=== PATIENT | female | born 1970 | race Two or more races ===

== ENCOUNTER 2024-07-30 05:55 | Emergency (ER) | payer MEDICAID, SELFPAY ==
[2024-07-30 05:57] VITALS: BP 177/79; PULSE 80; RESP 18; TEMP 37; O2SAT 97; BMI 28.5
--- NOTE | 2024-07-30 06:36 | XR_ITS ---
Examination: CT abdomen and pelvis without contrast. Coronal 3-D reconstructions. Sagittal 2-D reconstructions. Date and time of exam:August 09, 2024 0812 hrs. Indications: Mid abdominal pain beginning 5 days ago CTDI: vol (mGy): 12.8 DLP: (mGycm): 621 Technique: Axial images of the abdomen have been obtained, 3 mm slice thickness Intravenous contrast material has not been administered. Low dose protocols were performed. One or more of the following dose reduction techniques were used; automated exposure control, adjustment of the mA and/or KV according to patient size, use of iterative reconstruction technique. Findings: No focal liver or splenic lesions Absent gallbladder No extrahepatic biliary tract dilatation No pancreatic or adrenal mass No renal or ureteral calculi Minimal right hydronephrosis without ureteral calculi, consider urinary tract infection 13 mm fat-containing umbilical hernia Normal appendix No diverticulitis No bladder mass or bladder calculi Moderate osteopenia Impression: Minimal right hydronephrosis without renal or ureteral calculi, consider urinary tract infection Normal appendix 13 mm fat-containing umbilical hernia
--- NOTE | 2024-07-30 06:37 | PD.EDRME ---
Rapid Medical Screening Exam E Arrival date/time: 07/30/24 05:55 53-year-old female with medical history significant for pancreatitis and surgical history significant for hysterectomy and cholecystectomy presents to the emergency department today complaints of abdominal pain and bloating patient reports that her primary care doctor called her and let her know that her enzymes are elevated Chief Complaint: Abdominal Pain Vital signs: Vital Signs Temperature 98.6 F 07/30/24 05:57 Pulse Rate 80 07/30/24 05:57 Respiratory Rate 18 07/30/24 05:57 Blood Pressure 177/79 H 07/30/24 05:57 Pulse Oximetry (%) 97 07/30/24 05:57 Oxygen Delivery Method Room Air 07/30/24 05:57
[2024-07-30] MEDS: HYDROcodone/APAP 5/325 TABLET 1 TAB PO (06:41)
[2024-07-30 07:20] LABS: Collection Type, Urine Clean Catch
[2024-07-30 07:23] LABS: Basophils % (Auto) 0 % (0-2.5); Eosinophils # (Auto) 0.4 Thou/mm3 (0.0-0.5); Eosinophils % (Auto) 5 % (0-10); Hematocrit 42.4 % (36.0-46.0); Hemoglobin 14.3 g/dL (12.0-16.0); Immature Granulocytes % (Auto) 0 % (0-0); Immature Granulocytes Auto 0.03 Thou/mm3 (0.00-0.00); Lymphocytes # (Auto) 1.6 Thou/mm3 (1.0-4.8); Lymphocytes % (Auto) 21 % (10-50); Mean Corpuscular HGB Conc 33.7 g/dl (31.0-37.0); Mean Corpuscular Hemoglobin 29.5 pg (25.0-35.0); Mean Corpuscular Volume 88 fL (80-100); Monocytes # (Auto) 0.8 Thou/mm3 (0.0-0.8); Monocytes % (Auto) 11 % (0-12); Neutrophils # (Auto) 4.6 Thou/mm3 (1.8-7.7); Neutrophils % (Auto) 62 % (37-80); Nucleated Red Blood Cell % 0 /100 WBC (0); Platelet Count 320 Thou/mm3 (140-440); Red Blood Count 4.84 Miln/mm3 (4.00-5.20); White Blood Count 7.5 Thou/mm3 (3.6-11.0)
[2024-07-30 07:41] LABS: Alanine Aminotransferase 372 U/L (10-49); Albumin, Serum 4.6 gm/dL (3.5-5.0); Albumin/Globulin Ratio 1.4 (1.2-2.2); Alkaline Phosphatase 225 U/L (46-116); Anion Gap 6 (7-16); Aspartate Amino Transferase 255 U/L (0-34); BUN/Creatinine Ratio 7 Ratio (12-20); Blood Urea Nitrogen 7 mg/dL (9-23); Calcium 9.8 mg/dL (8.3-10.6); Calcium (Corrected) 9.8 mg/dL (8.5-10.1); Carbon Dioxide 28.6 mMol/L (20.0-31.0); Chloride 106 mMol/L (98-107); Estimated Creatinine Clearance 61.3 mL/min (>60); Globulin 3.2 gm/dL (2.3-3.5); Glucose 134 mg/dL (74-106); Lipase 80 U/L (12-53); Osmolality,Calculated 281 (275-295); Potassium 3.4 mMol/L (3.4-5.1); Sodium 141 mMol/L (136-145); Total Protein 7.8 gm/dL (5.7-8.2); eGFR > 60 See Note
--- NOTE | 2024-07-30 07:46 | XR_ITS ---
Examination: Abdomen sonogram, Limited Date and time of exam: August 09, 2024 0756 hrs. Indications: Nausea vomiting beginning 5 days ago Technique: Real-time peoples scale transabdominal sonographic images of the upper abdomen obtained. Findings: Absent gallbladder Common bile duct 0.9 cm no stones Pancreatic head 2.2 cm Liver 17.3 cm fatty infiltration Normal hepatopedal portal venous flow Patent IVC Impression: Common bile duct 0.9 cm, if biliary colic is a clinical consideration, suggest MRCP follow-up
[2024-07-30 07:52] LABS: Bilirubin,Urine Negative (Negative); Blood,Urine Negative (Negative); Clarity,Urine Clear (Clear/Hazy); Color,Urine Yellow (Lt Yel-Yel); Culture Indicated,Urine Not Indicated; Glucose, Urine Negative (Negative); Ketones,Urine Negative (Negative); Leukocyte Esterase,Urine Negative (Negative); Nitrite,Urine Negative (Negative); PH,Urine 7.5 (5.0-7.0); Protein,Urine Trace (Neg - Trace); RBC,Urine 2 /hpf (0-3); Specific Gravity,Urine 1.013 (1.001-1.035); Squamous Epithelial Cell,Urine 2 /hpf (0-5); WBC,Urine 1 /hpf (0-5)
[2024-07-30 10:10] LABS: Hepatitis A Antibody IgM Non Reactive (Non React); Hepatitis B Core Antibody IgM Non Reactive (Non React); Hepatitis B Surface Antigen Non Reactive (Non React); Hepatitis C Antibody Non Reactive (Non React)
[2024-07-30 11:12] VITALS: BP 168/98; PULSE 84; RESP 20; TEMP 37; O2SAT 99
--- NOTE | 2024-07-30 12:18 | PC.NURSE ---
PT CAME IN FOR EPIGASTRIC PAIN THAT RADIATES TO BACK SINCE 07/25/2024 PT WA NO LONGER TO TAKE PAIN. PT CT AND US REPORTS ARE BACK ALONG WITH LABS. PT IS AAOX4 COLLEEN TO ANSWER ALL QUESTIONS APPROPRATELY
[2024-07-30 12:20] VITALS: BP 143/93; PULSE 83; RESP 16; TEMP 37.2; O2SAT 97
--- NOTE | 2024-07-30 12:58 | EDNOTE_ITS ---
ED Abdominal Pain RME/HPI General Chief Complaint: Abdominal Pain Stated complaint: RIGHT UPPER BACK PAIN, RADIATING BACK, NAUSEA Arrival date/time: 07/30/24 05:55 RME / HPI RME / HPI narrative: 07/30/24 05:55 53-year-old female with medical history significant for pancreatitis and surgical history significant for hysterectomy and cholecystectomy presents to the emergency department today complaints of abdominal pain and bloating patient reports that her primary care doctor called her and let her know that her enzymes are elevated DR. NELSON MAIN ED EVALUATION: 53 year old female with past medical history significant for pancreatitis, hysterectomy, gallstones and a cholecystectomy presents to the Emergency Department with complaint of upper abdominal pain today. Pain is described as aching and rated 6/10. Associated symptoms include nausea but no vomiting. No other symptoms at this reported. Related Data Previous Rx's ?Medication ?Instructions ?Recorded albuterol sulfate 90 mcg/actuation 2 puff inhalation Q 6H #18 grams 08/11/17 aerosol inhaler albuterol sulfate 2.5 mg/3 mL 5 mg (6 mL) inhalation Q 20M PRN 03/29/18 (0.083 %) solution for nebulization shortness of breat h or wheezing #90 mL ibuprofen 800 mg tablet 800 mg PO TID PRN pain #30 t abs 12/10/18 docusate sodium 100 mg capsule 100 mg PO BID postop 30 days #60 05/14/21 (Colace) caps ibuprofen 600 mg tablet 600 mg PO Q6H PRN fever or p ain 30 05/14/21 days #60 tabs Allergies Allergy/AdvReac Type Severity Reaction Status Date / Time codeine Allergy Verified 07/30/24 12:14 sumatriptan (From Imitrex) Allergy Verified 07/30/24 12:14 Review of Systems Review of Systems Systems Reviewed: All systems reviewed, normal except as documented Narrative Review of Systems: GEN: No fever, no chills, no weight loss EYES: No discharge, no visual changes, no pain HEENT: No ear pain, no congestion, no sore throat PULM: No shortness of breath, no cough, no congestion CV: No chest pain, no dyspnea on exertion, no palpitations GI: + nausea, no vomiting, no diarrhea, + upper abdominal pain, no constipation : No frequency, no urgency and no dysuria MUSC/SKEL: No joint pain, no back pain SKIN: No rash PSYCH: No hallucinations, no depression HEME/LYMPH: No easy bleeding or bruising tendencies NEURO: No weakness, no headache Past Medical History Past Medical History NEUROLOGIC: Positive Migraine; Negative Neurological Disorders or Seizures CARDIAC: Positive Hypertension; Negative Cardiac Disorders or Congestive Heart Failure RESPIRATORY: Positive Asthma; Negative Chronic Obstructive Pulmonary Disease (COPD) GASTROINTESTINAL: Positive Gastrointestinal Disorders, Pancreatitis, Gall Bladder Disease (REMOVED 2002) and Gastroesophageal Reflux Disease GENITOURINARY: Negative Genitourinary Disorders or Renal Disease REPRODUCTIVE: Positive Previous Pregnancies (4) MUSCULOSKELETAL: Positive Musculoskeletal Disorders ENDOCRINE: Negative Endocrine Disorders, Diabetes Mellitus Type 1 or Diabetes Mellitus Type 2 HEMATOLOGIC: Negative Blood Disorders OTHER HISTORY: Positive Chicken Pox; Negative Falls, Blood Transfusions, Blood Transfusion Reaction or Anesthesia Reactions Surgical History SURGICAL: Positive Hysterectomy Social History SMOKING STATUS: Never smoker SUBSTANCE USE: does not use ALCOHOL: Never ED Exam Narrative Physical exam: GENERAL APPEARANCE: alert and oriented x 4, well-developed, well-nourished, no acute distress VITALS: All vitals were reviewed and the pulse ox is 98% on room air, which is normal according to my interpretation. HEENT: Normocephalic, atraumatic; pupils equal, round, reactive to light; EOMI; mucous membranes pink, moist; oropharynx clear NECK: Supple LUNGS: CTABL; no wheezes, no rales, no rhonchi HEART: Regular rate, regular rhythm; normal S1, S2; no murmurs ABDOMEN: epigastric and right upper quadrant tenderness; normal BS; no masses, no organomegaly, no hernia BACK: no CVA tenderness EXTREMITIES: atraumatic; no edema NEUROLOGIC: awake; alert and oriented x4; cranial nerves II-XII grossly intact; no focal sensory or motor deficits PSYCHIATRIC: appropriate mood and affect SKIN: warm, dry, normal color; no rashes Course Quality Measures none Orders Category Date Time Status CT abdomen pelvis wo con Stat Exams 07/30/24 06:36 Completed US gall bladder Stat Exams 07/30/24 07:46 Completed CBC Stat Lab 07/30/24 06:59 Completed Comprehensive Metabolic Panel Stat Lab 07/30/24 06:59 Completed Hepatitis Acute Panel Stat Lab 07/30/24 06:59 Completed Lipase Stat Lab 07/30/24 06:59 Completed UA, C/S IF [Urinalysis, C/S if Indicated] Stat Lab 07/30/24 06:55 Completed HYDROcodone*/APAP 5/325 [[place] 5/325] Med 07/30/24 06:36 Discontinued 1 tab PO X1 ONE Morphine Inj Med 07/30/24 13:01 Discontinued 5 mg IVP X1 ONE Ondansetron Inj [Zofran Inj] Med 07/30/24 13:01 Discontinued 4 mg IV X1 ONE Sodium Chloride 0.9% 1000 ml [Ns] 1,000 ml Med 07/30/24 13:01 Discontinued IV 999 mls/hr Vital Signs Vital signs: Vital Signs Temperature 98.6 F 07/30/24 05:57 Pulse Rate 80 07/30/24 05:57 Respiratory Rate 18 07/30/24 05:57 Blood Pressure 177/79 H 07/30/24 05:57 Pulse Oximetry (%) 97 07/30/24 05:57 Oxygen Delivery Method Room Air 07/30/24 05:57 Abdominal Pain MDM MDM Narrative MDM Narrative:: I, Rylee Montague am scribing for and in the presence of Dr. Nelson. Patient data External records reviewed:: [facility] previous records (Reviewed OB / SERVICES PROGRAM MANAGER note by Bijal Charlton dated 05/14/21) Clinical information provided by:: patient Social determinants that could affect healthcare access:: none Patient has the following chronic illnesses:: pancreatitis, hysterectomy, gallstones and a cholecystectomy How is presenting disease/condition affected by chronic disease/condition?: exacerbated by Evaluation data The following diagnostics were reviewed and interpreted by me:: lab results and radiology exam(s) Lab and/or radiology exams considered but not ordered:: none Interpretation Summary: Procedure(s): US gall bladder Accession Number(s): [id number] cc: Manny (LEO),Figueroa BAILEY; Ten Patel MD; Henry Rapp MD~ Examination: Abdomen sonogram, Limited Date and time of exam: August 09, 2024 0756 hrs. Indications: Nausea vomiting beginning 5 days ago Technique: Real-time peoples scale transabdominal sonographic images of the upper abdomen obtained. Findings: Absent gallbladder Common bile duct 0.9 cm no stones Pancreatic head 2.2 cm Liver 17.3 cm fatty infiltration Normal hepatopedal portal venous flow Patent IVC Impression: Common bile duct 0.9 cm, if biliary colic is a clinical consideration, suggest MRCP follow-up Dictated By: Henry Rapp MD Procedure(s): CT abdomen pelvis wo [facility] Accession Number(s): [id number] cc: Manny (LEO),Figueroa BAILEY; Ten Patel MD; Henry Rapp MD~ Examination: CT abdomen and pelvis without contrast. Coronal 3-D reconstructions. Sagittal 2-D reconstructions. Date and time of exam:August 09, 2024 0812 hrs. Indications: Mid abdominal pain beginning 5 days ago CTDI: vol (mGy): 12.8 DLP: (mGycm): 621 Technique: Axial images of the abdomen have been obtained, 3 mm slice thickness Intravenous contrast material has not been administered. Low dose protocols were performed. One or more of the following dose reduction techniques were used; automated exposure control, adjustment of the mA and/or KV according to patient size, use of iterative reconstruction technique. Findings: No focal liver or splenic lesions Absent gallbladder No extrahepatic biliary tract dilatation No pancreatic or adrenal mass No renal or ureteral calculi Minimal right hydronephrosis without ureteral calculi, consider urinary tract infection 13 mm fat-containing umbilical hernia Normal appendix No diverticulitis No bladder mass or bladder calculi Moderate osteopenia Impression: Minimal right hydronephrosis without renal or ureteral calculi, consider urinary tract infection Normal appendix 13 mm fat-containing umbilical hernia Dictated By: Henry Rapp MD Medications / Prescriptions Medications or Prescriptions considered but not ordered:: none Medication administrations:: Medication Administration History Discontinued Medications Hydrocodone Bitart/Acetaminophen (Hydrocodone/Apap 5/325 Tablet) 1 tab PO X1 ONE Stop: 07/30/24 06:37 Last Admin: 07/30/24 06:41 Dose: 1 tab Documented By: CVL Sodium Chloride (Ns) 1,000 mls @ 999 mls/hr IV .Q1H1M ONE Stop: 07/30/24 14:01 Last Infusion: 07/30/24 15:56 Dose: Infused Documented By: Admin: 07/30/24 13:44 Dose: 999 mls/hr Documented By: KDC Morphine Sulfate (Morphine Sulf Inj 10 Mg/Ml Vial) 5 mg IVP X1 ONE Stop: 07/30/24 13:02 Last Admin: 07/30/24 13:48 Dose: 5 mg Documented By: KDC Ondansetron HCl (Ondansetron Inj 2 Mg/Ml Inj 2 Ml) 4 mg IV X1 ONE Stop: 07/30/24 13:02 Last Admin: 07/30/24 13:46 Dose: 4 mg Documented By: [facility] see above Consultations Consultation(s) initiated? (list below): Yes Consultation #1 (Physician, Specialty, Details): Discussed test HPI, PMHx, lab, radiology results and/or management with GI specialist Dr. Rhodes from [facility]. Accepts the patient for transfer, ED to ED. Time: 17:19 Diagnosis Differential diagnosis abdominal pain: abdominal pain, diverticulitis, gastroenteritis, pancreatitis and other (kidney stones, gallstones) Most likely diagnosis given after review of the tests above:: Hyperbilirubinemia Transaminitis Abdominal pain Admission Indicated Admission indicated?: not indicated Explain why admission is indicated or not indicated:: Patient needs a MRCP and will be transferred. Admission Request Was there a request for admission?: No Disposition Plan Disposition Plan: Transfer Discharge Plan Plan Patient Disposition: er Acute Care Fac Prescriptions/Referrals Prescriptions/Med Rec: No Action albuterol sulfate 2.5 mg /3 mL (0.083 %) solution for nebulization 5 mg INH Q20M PRN (Reason: shortness of breath or wheezing) Qty: 90 0RF Rx Instructions: for 3 doses albuterol sulfate 90 mcg/actuation HFA aerosol inhaler 2 puff INH Q6H Qty: 18 0RF Rx Instructions: administer with spacer ibuprofen 800 mg tablet 800 mg PO TID PRN (Reason: pain) Qty: 30 0RF ibuprofen 600 mg tablet 600 mg PO Q6H MDD 4 PRN (Reason: fever or pain) 30 Days Qty: 60 1RF docusate sodium [Colace] 100 mg capsule 100 mg PO BID MDD 2 30 Days Qty: 60 1RF Referrals: Ten Patel MD [Primary Care Provider] - In 1 week Problem List Clinical Impression: Hyperbilirubinemia, Abdominal pain, Transaminitis Patient/Caregiver Discharge Instructions Print Language: Maltese Stand Alone Forms: [facility] Award Info., Patient Portal Info Letter
[2024-07-30 13:00] VITALS: BP 111/62; PULSE 70; RESP 16; O2SAT 98
[2024-07-30] MEDS: SODIUM CHLORIDE 0.9% 1000 ML 1,000 ML 999 ML IV (13:44)
[2024-07-30] MEDS: ONDANSETRON INJ 2 MG/ML INJ 2 ML 4 MG IV ×2 (13:46→17:55)
[2024-07-30] MEDS: MORPHINE SULF INJ 10 MG/ML VIAL 5 MG IVP ×2 (13:48→17:54)
--- NOTE | 2024-07-30 15:04 | PC.CC ---
Addendum entered by Tristin Mcdermott RN 07/30/24 18:50: 1755 called [facility] that pt is accepted at [facility]. 1747 called and informed charge nurse regarding clam picker time 1930. 1734 sent paperwork to [facility] through [employer]. Called [facility], spoke to and set up the transport. The clam picker time is 1830. 1725 transfer packet is complete with CD inside including all signatures. Transfer packet and number to call for report given to charge nurse. 1719 received call from Riddhi at [facility] that pt is accepted for ED to ED transfer. Accepted by Graeme Singh. Call report at [phone]. 1715 received call from Riddhi and she wants to speak with Dr. Ahumada. Conference call connected. 1710 went to [facility] to see if CD is ready, tech not there. 1650 received call from Earlene at [facility], want to speak with Dr. Nelson. Conference call connected. 1645 called neurology technician for CD, no answer. 1615 faxed clinicals to [facility]. Addendum entered by Tristin Mcdermott RN 07/30/24 15:38: 1531 Called [facility], spoke to Riddhi and initiated the transfer. 1520 I review progress notes and found pt has hx of cholecystectomy. Gall bladder US shows CBD measures 0.9cm needs MRCP. Addendum entered by Tristin Mcdermott RN 07/30/24 15:09: 1509 Clinicals faxed to [facility]. Original Note: 1453 received call from ED charge nurse that pt needs to be transferred for MRCP. Dx Cholecystitis and elevated LFTs.
[2024-07-30 15:08] VITALS: BP 147/79; PULSE 80; RESP 16; TEMP 36.8; O2SAT 98
[2024-07-30 19:20] VITALS: BP 141/69; PULSE 79; RESP 19; TEMP 37.2; O2SAT 93
--- NOTE | 2024-07-30 19:30 | PC.NURSE ---
Report given to el To. all questions answered. report called to transport hospital called by [facility]
== END 2024-07-30 19:33 | disposition short-term general hospital (02) ==
PROVIDERS: Nurse Practitioner Primary Care; Emergency Provider Emergency Medicine; PCP Family Medicine
DX: R10.10 Upper abdominal pain, unspecified (principal); R74.01 Elevation of levels of liver transaminase levels; R17 Unspecified jaundice
CPT/HCPCS: 36415; 74176; 76705; 80053; 80074; 81001; 83690; 85025; 96361; 96374; 96375; 96376; 99285; J2270; J2405; J7030; A9270